=== PATIENT | male | born 1990 | race Two or more races ===

== ENCOUNTER 2017-11-16 15:36 | Emergency (ER) | payer SELFPAY ==
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
--- NOTE | 2017-11-16 15:46 | CPEKG ---
Heart Rate: 59 RR Interval: 1017 P-R Interval: 172 QRSD Interval: 102 QT Interval: 392 QTC Interval: 389 P [place]: 71 QRS [place]: 92 T Wave [place]: 53 EKG Severity - OTHERWISE NORMAL ECG - EKG Impression: SINUS RHYTHM EKG Impression: BORDERLINE RIGHT AXIS DEVIATION EKG Impression: ST ELEV, PROBABLE NORMAL EARLY REPOL PATTERN Electronically Signed By: Peace Cain 16-Nov-2017 21:10:33
[2017-11-16 16:28] LABS: PLATELET COUNT 181 10^3/uL (150-400)
[2017-11-16 17:58] VITALS: BP 105/64
== END 2017-11-16 17:57 | disposition home or self-care (01) ==
DX: S62.666A Nondisplaced fracture of distal phalanx of right little finger, initial encounter for closed fracture (principal); R55 Syncope and collapse; V18.4XXA Pedal cycle driver injured in noncollision transport accident in traffic accident, initial encounter; Y92.410 Unspecified street and highway as the place of occurrence of the external cause; Y99.0 Civilian activity done for income or pay; Y93.55 Activity, bike riding
CPT/HCPCS: 84484-PO; L3925